=== PATIENT | male | born 2000 | race Caucasian/White ===

== ENCOUNTER 2022-03-18 12:59 | Emergency (ER) | payer OTHER ==
[2022-03-18] MEDS ORDERED: Boostrix 0.5 ML (Tdap) VIAL ONE (13:18)
== END 2022-03-18 14:00 | disposition home or self-care (01) ==
LOC: ERS 12:59
DX: T20.16XA Burn of first degree of forehead and cheek, initial encounter (principal); T20.17XA Burn of first degree of neck, initial encounter; T21.11XA Burn of first degree of chest wall, initial encounter; F17.290 Nicotine dependence, other tobacco product, uncomplicated; W40.1XXA Explosion of explosive gases, initial encounter; Z23 Encounter for immunization
CPT/HCPCS: 71045; 90471; 90715